=== PATIENT | male | born 1995 | race Caucasian/White ===

== ENCOUNTER 2016-10-20 20:09 | Emergency (ER) | payer OTHER | END 2016-10-20 22:54 | disposition home or self-care (01) | LOC: ER 20:09 | DX: S00.11XA Contusion of right eyelid and periocular area, initial encounter (principal); W20.8XXA Other cause of strike by thrown, projected or falling object, initial encounter; Y93.H9 Activity, other involving exterior property and land maintenance, building and construction | CPT/HCPCS: 99282 ==